=== PATIENT | male | born 1980 | race Caucasian/White ===

== ENCOUNTER 2022-03-05 20:54 | Emergency (ER) | payer MEDICARE ==
[2022-03-06] MEDS ORDERED: IBUPROFEN 800 MG TAB PO ONE (02:15)
[2022-03-06 05:58] VITALS: BP 125/80
== END 2022-03-06 06:11 | disposition left against medical advice (07) ==
LOC: ER 20:54
DX: M25.552 Pain in left hip (principal); X58.XXXA Exposure to other specified factors, initial encounter; Y93.89 Activity, other specified; Y92.89 Other specified places as the place of occurrence of the external cause; Y99.8 Other external cause status
CPT/HCPCS: 73502; 73630; 74176